=== PATIENT | female | born 1980 | race Caucasian/White ===

== ENCOUNTER 2021-10-10 09:13 | Day surgery (SDC) | payer BC ==
[2021-10-10] MEDS ORDERED: Propofol 200 MG/20 ML SDV IV ONE (09:14)
[2021-10-10] MEDS ORDERED: Lactated Ringers 1,000 ML IV SCH (09:15)
[2021-10-10] MEDS ORDERED: Sodium Chloride 0.9% 10 ML Syringe FLUSH PRN (09:15)
[2021-10-10] MEDS ORDERED: Propofol 200 MG/20 ML SDV ONE ×2 (10:00→10:53)
[2021-10-10] MEDS ORDERED: Midazolam 1 MG/ML 2 ML SDV ONE (10:00)
--- NOTE | 2021-10-10 11:16 | PCM.PRNOTE ---
- Free Text/Narrative Note: PROCEDURE PERFORMED: Colonoscopy PRE-PROCEDURE DIAGNOSIS/INDICATION FOR PROCEDURE: Screening for colorectal cancer due to a family history of colorectal cancer (father, diagnosed at 51yo) CONSENT: Informed consent was obtained prior to the procedure after discussion of the risks (including pain, bleeding, infection, perforation, missed polyps, inability to completely remove polyps or complete procedure necessitating repeat colonoscopy, adverse reaction to anesthesia, cardiovascular event), benefits and alternatives and expected outcomes. The patient expressed understanding and wished to proceed. Verbal consent given and consent form signed. PROCEDURAL PAUSE: Completed SEDATION: Per anesthesia DESCRIPTION OF PROCEDURE: Patient was placed in the left lateral decubitus position. After adequate sedation and anesthetic was administered, a rectal exam was performed revealing no abnormalities. A lubricated Olympus Video Colonoscope was inserted into the rectum and air insufflation was performed. The colonoscope was advanced through the rectum, sigmoid, descending, transverse, and ascending colon, noting significant dark brown liquid stool burden. Despite this, the cecum was successfully reached and the ileocecal valve as well as the appendiceal orifice were identified and pictorially documented. After adequate visualization of the cecum following copious irrigation, the scope was withdrawn, giving 360-degree views of the colonic mucosa to the extent possible with irrigation and suction w ith the following findings noted: Ileocecal valve: Normal Cecum: Normal Ascending colon: Normal Hepatic flexure: Normal Transverse colon: Normal Splenic flexure: Normal Descending colon: Normal Sigmoid colon: Normal Rectum: Normal The scope was straightened, air suction performed, and the scope withdrawn without complication. Preparation adequacy [place] Bowel Score 6/9 (-1 for each segment). IMPRESSION: Colonoscopy performed revealing no polyps. PLAN: Next colonoscopy recommended in 5 years due to family history.
== END 2021-10-10 12:27 | disposition home or self-care (01) ==
LOC: KA.SDS 09:13
PROVIDERS: ATTEND Family Medicine
DX: Z12.11 Encounter for screening for malignant neoplasm of colon (principal); Z80.0 Family history of malignant neoplasm of digestive organs
CPT/HCPCS: 00812; J2250; J2704; J7120